=== PATIENT | male | born 1960 | race Caucasian/White ===

== ENCOUNTER 2018-02-16 16:35 | Emergency (ER) | payer OTHER ==
[2018-02-16] MEDS ORDERED: OLANZapine 10 MG in Water For Injection, Sterile 2.1 ML IM ONE (17:34)
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
[2018-02-16 18:35] LABS: CHLORIDE,CL 103 mmol/L (98-107); SODIUM,NA 137 mmol/L (136-148)
== END 2018-02-16 19:35 ==
LOC: MW.ED 16:35
DX: F28 Other psychotic disorder not due to a substance or known physiological condition (principal); F31.9 Bipolar disorder, unspecified; Z79.899 Other long term (current) drug therapy
CPT/HCPCS: 36415; 80053; 80178; 80305; 81001; 82550; 83735; 84443; 85025; 93005; 96372; 99285; G0480; 99284